=== PATIENT | male | born 2000 | race African-American/Black ===

== ENCOUNTER 2019-05-16 15:09 | Emergency (ER) | payer SELFPAY ==
[~2019-05-16] VITALS: Ht 180.3 cm; Wt 70.8 kg
[2019-05-16 15:19] VITALS: BP 127/110
== END 2019-05-16 16:08 | disposition home or self-care (01) ==
LOC: ER 15:15
DX: K21.9 Gastro-esophageal reflux disease without esophagitis (principal); M54.5 Low back pain